=== PATIENT | male | born 1980 | race Caucasian/White ===

== ENCOUNTER → 2018-07-26 14:02 | Outpatient (CLI) | payer OTHER, SELFPAY ==
[2016-11-02 23:52] VITALS: BMI 27.9
--- NOTE | 2018-07-26 14:04 | RAD_ITS ---
STUDY: X-RAY - CERVICAL SPINE REASON FOR EXAM: Male, 37 years old. Lower cervical pain TECHNIQUE: 3 view(s) of the cervical spine were obtained. COMPARISON: 07/17/2014 FINDINGS: Normal anterior atlantoaxial articulation. Normal odontoid process. There is reversal of the normal cervical lordosis. Anterior spondylosis with endplate sclerosis and disc space narrowing at C5-C6 is worse since the prior study. There is also worsening disc disease at C6-C7 as compared to the prior study. Normal remaining disc space heights. No subluxation. The soft tissue structures are unremarkable. RAD/Cerv Spine 2 or 3 Views IMPRESSION: 1. Worsening degenerative disc disease at C5-C6 and C6-7 C7. Electronically Signed: Kulwant Gale MD at 21:35 EST , Service support ,
--- NOTE | 2018-07-26 14:05 | RAD_ITS ---
STUDY: X-RAY - UNILATERAL RIBS ( RIGHT ) REASON FOR EXAM: Male, 37 years old. Patient states no known recent injury. Pain in lower right ribs anteriorly and radiating posteriorly as well. Patient states he was injured as a child in his ribs. TECHNIQUE: 4 view(s) of the ribs. COMPARISON: None. FINDINGS: Normal visualized ribs without a demonstrated fracture. The visualized lung is clear and expanded. RAD/Ribs Unil 2V No CXR IMPRESSION: Normal x-ray examination of the ribs. Electronically Signed: Kulwant Gale MD at 22:29 EST , Service support ,
== END ==
LOC: RAD 14:02
PROVIDERS: Family Provider Internal Medicine; PCP Internal Medicine; Referring Provider Anesthesiology Pain Medicine; Visit Provider Anesthesiology Pain Medicine
DX: M54.2 Cervicalgia (principal); R07.9 Chest pain, unspecified
CPT/HCPCS: 71100; 72040

== ENCOUNTER 2021-09-03 11:41 | Inpatient (IN) | payer MEDICAID, SELFPAY ==
[2021-09-03] VITALS (7 sets, daily range): BP systolic 134–158; BP diastolic 81–100; PULSE 107–114; RESP 16–20; TEMP 35.6–37.8; O2SAT 98–100; BMI 27.2; BMI 26.5
--- NOTE | 2021-09-03 11:56 | EX.ED.DYSGE1 ---
HPI History of Present Illness Chief Complaint: Substance Abuse Detail of Chief Complaint: She presents with withdrawal symptoms and requesting detox from fentanyl an Informant: patient and family Onset/Context/Timing Onset: - (Per HPI) Context: - (Per HPI) Timing: - (Per HPI) Quality: Last alcoholic beverage 7 AM Location: Generalized withdrawal symptoms Current Severity: Moderate Maximum Severity: Moderate Worsened by: Abstinence Relieved by: Nothing Associated Symptoms Associated Symptoms: Tremors, palpitations, agitation abdominal cramping and nausea Narrative Narrative: Patient is a 40-year-old male who was in a detox program 7 years ago. He started drinking 2 years ago because of problems with girlfriend. He drinks between 6 and 12 cans of beer per day. He states 6 months ago he started injecting fentanyl. He started injecting because his girlfriend started to inject. He is injecting 4-5 times a day. He states he is injecting 1/4 g of fentanyl per injection. He reports feeling uneasy, palpitations, tremors, nausea and abdominal cramps. He states he does not feel well. He appears fidgety. He had a history of hepatitis C. He states he underwent treatment. He denies being HIV positive. He states he is having difficulty injecting because he has bumps in his arms. He denies history of rheumatic fever, heart murmur or SBE. Prior similar symptoms: Yes Recent Illness/Hospitalization: No [facility] Medical History Fentanyl dependence Home Medications buprenorphine-naloxone [Suboxone 8 mg-2 mg Sl Film] 14 mg SUBLINGUAL DAILY 01/23/15 [History Last Taken Unknown] Lisinopril 20 mg PO DAILY 05/25/15 [History Last Taken Unknown] omeprazole 20 mg PO DAILY 05/25/15 [History Last Taken Unknown] trazodone 150 mg PO QHS 11/02/16 [History Last Taken Unknown] cephalexin 500 mg PO Q6 #40 capsule 11/03/16 [Rx Last Taken Unknown] Allergy/AdvReac Type Severity Reaction Status Date / Time No Known Allergies Allergy Verified 09/03/21 11:44 Social History (Updated 09/03/21 @ 12:[address] Lamonte Carrillo MD) household members: significant other Smoking Status: Current every day smoker tobacco type: cigarettes alcohol intake: current alcohol intake frequency: 3 or more drinks per day substance use type: opiates and IV drugs ROS ROS ED Constitutional Constitutional ED: Reports chills, fever(s), sweats and weight loss Eyes Eyes: Denies blurry vision, change in vision or diplopia ENT ENT ED: Reports rhinorrhea; Denies ear pain or sore throat Cardiovascular Cardiovascular: Reports palpitations and racing heartbeat; Denies chest pain Respiratory/Chest Respiratory/Chest: Denies cough, dyspnea or dyspnea on exertion Gastrointestinal Gastrointestinal: Reports abdominal pain and nausea; Denies diarrhea, melena or vomiting Genitourinary Genitourinary ED: Denies dysuria, hematuria or urinary frequency Musculoskeletal Musculoskeletal: Reports arthralgias and myalgias; Denies neck pain Integumentary Reports other Details: Patient has multiple palpable lumps volar surface of his right and left forearm suspect due to subcutaneous injection of fentanyl ; Denies abscess, Abrasions or rash Neurologic Neurologic: Denies headache(s), paresthesias or weakness Psychiatric Psychiatric: Reports anxiety and depression Endocrine Endocrinology: Denies polydipsia, polyphagia or polyuria Hematologic/Lymphatic Hematologic/Lymphatic: Denies anemia, easy bleeding, easy bruising or lymphadenopathy EXAM Physical Exam Const Vital Signs: 09/03/21 11:42 09/03/21 11:56 Temperature 96.0 F L Temperature Source Temporal Pulse Rate 114 H 110 H Respiratory Rate 16 Blood Pressure 158/94 H Blood Pressure Mean 115 Pulse Ox 100 Oxygen Delivery Method Room Air Positive well nourished, well developed and unkempt; Negative for obese or contractures General Appearance ED: unkempt, well developed and other Patient is fidgety, restless and appears uncomfortable. ; Negative for contractures, cyanotic, diaphoretic, NAD or pallor Nutritional Appearance: Negative for obese HEENT Reports TM's clear and moist mucous membranes HEENT Narrative: Nares patent. Poor dentition. Negative for trauma or tenderness Tympanic Membrane ED: Yes TM's clear Eyes PERRL and EOMs intact bilaterally General Eye ED: Negative for pale conjunctiva or scleral icterus Neck no lymphadenopathy, supple and no JVD Neck Narrative: Trachea is midline. Resp normal respiratory effort and clear to auscultation bilaterally Cardio regular rhythm, S1 normal heart sound, S2 normal heart sound and no murmurs Rate: tachycardic GI non-distended and no masses; Negative for hepatosplenomegaly Palpation: soft and tender other (Minimal superficial tenderness.); Negative for guarding or rebound tenderness present Back/Spine no CVA tenderness Cervical Spine: Negative for cervical spine tenderness Thoracic Spine / Upper Back: Negative for thoracic spinal tenderness or paraspinal muscle tenderness Extremity Negative for normal to inspection Extremity Narrative: Palpable subcutaneous masses suspect due to failed IV cannulation and injection of fentanyl subcutaneously there is no erythema, warmth or induration. There is no lymphangitis. There is no epitrochlear lymphadenopathy. General Extremety ED: Negative for edema or tenderness General Extremity: Negative for edema Neuro oriented x3, CN's II-XII intact bilaterally and no sensory deficits noted Neuro Narrative: Patient is hyperreflexic with 3 beats of clonus at the right and left ankle. There is no Babinski sign or dysmetria. Sensorium / Orientation: alert Motor Exam: strength 5/5 throughout Psych Appearance: unkempt Attitude: agitated Mood & Affect: anxious Skin No no rashes or lesions noted and no wounds General Skin Exam: Negative for jaundice or pallor MDM MDM MDM Narrative Medical decision making narrative: Patient has history and physical exam consistent with withdrawal. Suspect he withdraws from the opiates. There may be concomitant alcohol withdrawal. Appropriate labs were ordered. Treatment was initiated with Ativan and phenobarb. Patient understands he is not permitted to smoke while here. Lab Data Lab results narrative: Labs to be followed by hospitalist admitting patient. Hospitalist is presently seeing the patient. Labs: Laboratory Results - last 24 hr 09/03/21 12:10 Ur Drug Screen Comment Rhythm Strip Rhythm Strip: Sinus Tach Rate: 108 Ectopy: None Discharge Plan Triage Chief Complaint: Substance Abuse ED Provider: Lamonte Carrillo Dx/Rx/DC Orders Clinical Impression: Alcohol withdrawal, Withdrawal from opioids Prescriptions: No Action buprenorphine-naloxone [Suboxone] 1 EACH Film 14 mg sublingual DAILY RF: 0 omeprazole 20 MG Capsule.Dr 20 mg PO DAILY RF: 0 Lisinopril 20 mg PO DAILY RF: 0 trazodone 150 MG tablet 150 mg PO QHS RF: 0 cephalexin 500 MG capsule 500 mg PO Q6 Qty: 40 RF: 0 Primary Care Provider: Lorena Edgar Referrals: Lorena Edgar MD [Primary Care Provider] - Disposition Disposition: Acute Care Hospital [facility]
[2021-09-03] MEDS: Dicyclomine 10 MG Capsule 20 MG PO ×2 (12:04→17:49)
[2021-09-03] MEDS: LORazepam 2 MG/ML Syringe 1 MG IM (12:05)
[2021-09-03] MEDS: Ondansetron ODT 4 MG Tablet PO (12:05)
[2021-09-03] MEDS: Phenobarbital 32.4 MG Tablet 97.2 MG PO (12:05)
--- NOTE | 2021-09-03 12:24 | PCM.HP.STD ---
HPI - General HPI Narrative EMERY BRANTLEY, is a 40 M who presents seeking treatment for fentanyl and alcohol withdrawal. Last fentanyl use was last night and last drink was this AM. Since he last use, he has been diaphoretic, abdominal cramps, tremulousness. He was sober 7 years ago, but began using fentanyl 2 years ago. He has developed lesions in his arm from injections. He plans to follow up with [facility] as outpt with his (she is currently incarcerated). [facility] Medical History Fentanyl dependence Hepatitis C Home Medications buprenorphine-naloxone [Suboxone 8 mg-2 mg Sl Film] 14 mg SUBLINGUAL DAILY 01/23/15 [History Last Taken Unknown] Lisinopril 20 mg PO DAILY 05/25/15 [History Last Taken Unknown] omeprazole 20 mg PO DAILY 05/25/15 [History Last Taken Unknown] trazodone 150 mg PO QHS 11/02/16 [History Last Taken Unknown] cephalexin 500 mg PO Q6 #40 capsule 11/03/16 [Rx Last Taken Unknown] Allergy/AdvReac Type Severity Reaction Status Date / Time No Known Allergies Allergy Verified 09/03/21 11:44 no significant family history Social History household members: significant other Smoking Status: Current every day smoker tobacco type: cigarettes alcohol intake: current alcohol intake frequency: 3 or more drinks per day substance use type: opiates and IV drugs ROS ROS Narrative All review of systems were negative except as mentioned above in the history of present illness and the other review of systems. Vital Signs Vital Signs Vital Signs: 09/03/21 11:42 09/03/21 11:56 Temperature 35.6 C L Temperature Source Temporal Pulse Rate 114 H 110 H Respiratory Rate 16 Blood Pressure 158/94 H Blood Pressure Mean 115 Pulse Ox 100 Oxygen Delivery Method Room Air Weight Weight: 86.183 kg Body Mass Index (BMI) 27.2 Physical Exam Const alert Constitutional Narrative: agitated. afebrile. HEENT normocephalic, head/scalp atraumatic, hearing grossly normal bilaterally and moist oral mucous membranes Resp normal respiratory effort, no retractions, no use of accessory muscles and clear to auscultation bilaterally Cardio regular rate, regular rhythm and S1 normal heart sound GI normal to inspection, nondistended, normoactive bowel sounds, soft to palpation, non-tender and non-distended Extremity normal to inspection Skin Skin Narrative: Raised indurated lesions on bilateral antecubital regions. Results Lab / Micro Data Labs: Laboratory Results - last 24 hr 09/03/21 12:10: Ur Drug Screen Comment Rhythm Strip Rhythm Strip: Sinus Tach Rate: 108 Ectopy: None Assessment & Plan Assessment/Plan (1) Alcohol withdrawal: QUALIFIERS: Complication of substance-induced condition: with perceptual disturbance Qualified Code(s): F10.232 - Alcohol dependence with withdrawal with perceptual disturbance (2) Withdrawal from opioids: PLAN: 1. Acute opiate withdrawal Last use was on the I feel this is primarily his main withdrawal symptoms rather than alcohol but will treat him for both Buprenorphine taper as well as additional medications to help with somatic complaints Patient to follow-up with [facility] upon discharge 2. Acute alcohol withdrawal Thiamine and folate Phenobarbital taper 3. Antecubital arm lesions No evidence of infection at this time Likely due to the cutting agents with his fentanyl 4. VTE prophylaxis not indicated at this time Charges/Coding Visit Charges Inpatient E&M: 49312 Init Hosp L2
[2021-09-03 12:31] LABS: Absolute Neutrophil Count 9.2 X10^3/uL (2.0-7.7); Basophil# 0.08 X10^3/uL; Basophil% 0.6 % (0-1); Eosinophil# 0.15 X10^3/uL; Eosinophils% 1.2 % (0-5); Hematocrit 41.2 % (40-54); Hemoglobin 13.5 g/dL (13.0-16.5); Lymphocyte % 19.3 % (19-41); Mean Corp Hgb Conc 32.8 g/dL (32-36); Mean Corpuscular Hgb 28.5 pg (27.0-32.0); Mean Corpuscular Volume 86.9 fL (80-94); Mean Platelet Vol. 8.4 fl (6.2-12.0); Monocyte# 0.54 X10^3/uL; Monocyte% 4.3 % (0-10); NRBC Flagged by Analyzer 0 % (0-5); Neutrophil # 9.16 X10^3/uL (2.7-7.7); Neutrophil % 73.9 % (47-70); Platelet Count 427 K/mm3 (150-450); RBC Distribution Width CV 13.5 % (11.6-14.6); RBC Distribution Width SD 42.8 fl (35.1-43.9); Red Blood Count 4.74 M/mm3 (4.6-6.2); White Blood Count 12.4 K/mm3 (4.4-11.0)
[2021-09-03] MEDS: Midazolam 2 MG/2 ML Syringe IM (12:32)
[2021-09-03 12:42] LABS: Amphetamine Urine VISTA NEGATIVE (<1000 ng/mL); Barbiturate Urine VISTA NEGATIVE (< 200 ng/mL); Benzodiazepine Urine VISTA NEGATIVE (< 200 ng/mL); Cocaine Urine VISTA NEGATIVE (< 300 ng/mL); Ecstacy Urine VISTA NEGATIVE (< 500 ng/mL); Methadone Urine VISTA NEGATIVE (< 300 ng/mL); PCP Urine VISTA NEGATIVE (< 25 ng/mL); THC Urine VISTA POSITIVE (< 50 ng/mL); Vista UDS pH Range 6
[2021-09-03 12:45] LABS: ALB/GLOB Ratio 0.7 RATIO (0.9-2.4); AST(SGOT) 27 U/L (15-37); Alanine Aminotransfer ALT/SGPT 45 U/L (16-61); Albumin, Serum 3.4 g/dL (3.2-5.0); Alkaline Phosphatase 91 U/L (45-117); Anion Gap 6 (5-15); BUN 10 mg/dL (7-18); BUN/Creat Ratio 15.6 RATIO (10-20); Calcium,Total 9.4 mg/dL (8.5-10.1); Chloride 108 mmol/L (98-107); Creatinine, Serum 0.64 mg/dL (0.70-1.30); EST Glomerular Filtration Rate 145 mL/min (>60); Est Glom Filt Rate - Afr Amer 176 mL/min (>60); Estimated Creatinine Clearance 155.25 ml/min; Globulin 4.8 g/dL (2.2-4.2); Glucose 108 mg/dL (74-106); Potassium 3.7 mmol/L (3.5-5.1); Protein, Total 8.2 g/dL (6.4-8.2); Sodium Level 139 mmol/L (136-145)
--- NOTE | 2021-09-03 12:55 | NURSING ---
Sandrita abreu withdrawal alcohol and fentanyl
[2021-09-03] MEDS: Buprenorphine HCl 2 MG TAB.SUBL SL ×2 (13:57→22:10)
--- NOTE | 2021-09-03 15:16 | ADDICTION ---
This com writer met with PT to conduct ASAM, MSE, AUDIT assessments and to plan for d/c. PT A+Ox4 and participated actively. All assessments completed, faxed to [facility] [place] and placed in PT's chart. PT plans to f/u with [facility] for Recovery services. PT did not indicate a need for transportation post d/c from [facility].
[2021-09-03] MEDS: Phenobarbital 32.4 MG Tablet 64.8 MG PO ×2 (15:38→20:37)
[2021-09-03] MEDS: cloNIDine HCl 0.1 MG Tablet PO (15:38)
[2021-09-03] MEDS: Methocarbamol 750 MG Tablet 1500 MG PO (17:49)
[2021-09-03] MEDS: Gabapentin 300 MG Capsule PO (17:49)
[2021-09-03] MEDS: traZODone 100 MG Tablet PO (20:41)
[2021-09-03] MEDS: hydrOXYzine PAM 25 MG Capsule 50 MG PO (20:41)
[2021-09-04] MEDS: Phenobarbital 32.4 MG Tablet 64.8 MG PO ×6 (00:50→19:59)
--- NOTE | 2021-09-04 03:21 | PCS.PANDOC ---
PANDEMIC DOCUMENTATION INITIATED: Date: 03/28/2021 Time: 190
[2021-09-04] MEDS: Methocarbamol 750 MG Tablet 1500 MG PO ×2 (04:35→22:48)
[2021-09-04] MEDS: Gabapentin 300 MG Capsule PO (04:35)
[2021-09-04 04:40] VITALS: BP 146/99; PULSE 82; RESP 16; TEMP 36.1; O2SAT 98
[2021-09-04] MEDS: Buprenorphine HCl 2 MG TAB.SUBL SL ×3 (06:07→22:48)
[2021-09-04] MEDS: Thiamine Hydrochloride 100 MG Tablet PO (08:12)
[2021-09-04] MEDS: Folic Acid 1 MG Tablet PO (08:13)
[2021-09-04] MEDS: Lisinopril 20 MG Tablet PO (08:13)
[2021-09-04] MEDS: Pantoprazole Sodium 20 MG Tablet PO (08:13)
[2021-09-04 08:19] VITALS: BP 147/97; PULSE 92; RESP 16; TEMP 37.9; O2SAT 99
[2021-09-04 11:29] VITALS: BP 137/87; PULSE 100; RESP 16; TEMP 36.5; O2SAT 99
[2021-09-04 11:30] VITALS: BP 137/87; PULSE 100; RESP 16; TEMP 36.5; O2SAT 99
--- NOTE | 2021-09-04 11:32 | PCM.PN.HOSP ---
Subjective Subjective Had some chills. Objective Data Objective Data Vital Signs: Vital Signs Temp Pulse Resp BP Pulse Ox 36.5 C L 100 16 137/87 H 99 09/04/21 11:30 09/04/21 11:30 09/04/21 11:30 09/04/21 11:30 09/04/21 11:30 Oxygen Delivery Method Room Air Weight: 84.005 kg Body Mass Index (BMI) 26.5 Intake & Output: Intake and Output for Last 24 Hours 09/02/21 09/03/21 09/04/21 23:59 23:59 23:59 Intake Total 800 / 800 450 / 450 Balance 800 / 800 450 / 450 Lab / Micro Data Result Diagrams: 09/03/21 12:25 09/03/21 12:25 Labs: Laboratory Results - last 24 hr 09/03/21 12:10: Urine Opiates Screen NEGATIVE, Urine Methadone Screen NEGATIVE, Ur Barbiturates Screen NEGATIVE, Ur Phencyclidine Scrn NEGATIVE, Ur Amphetamines Screen NEGATIVE, U Methamphetamin-MDMA NEGATIVE, U Benzodiazepines Scrn NEGATIVE, Urine Cocaine Screen NEGATIVE, U Cannabinoids Screen POSITIVE H, Ur Drug Screen Comment 09/03/21 12:25: WBC 12.4 H, RBC 4.74, Hgb 13.5, Hct 41.2, MCV 86.9, MCH 28.5, MCHC 32.8, RDW Std Deviation 42.8, RDW Coeff of Parker 13.5, Plt Count 427, MPV 8.4, Immature Gran % (Auto) 0.700, Neut % (Auto) 73.9 H, Lymph % (Auto) 19.3, [place] % (Auto) 4.3, Eos % (Auto) 1.2, Baso % (Auto) 0.6, Absolute Neuts (auto) 9.2 H, Absolute Lymphs (auto) 2.40, Nucleated RBC % 0 09/03/21 12:25: Sodium 139, Potassium 3.7, Chloride 108 H, Carbon Dioxide 25.0, Anion Gap 6, BUN 10, Creatinine 0.64 L, Estim Creat Clear Calc 155.25, Est GFR (MDRD) Af Amer 176, Est GFR (MDRD) Non-Af 145, BUN/Creatinine Ratio 15.6, Glucose 108 H, Calcium 9.4, Total Bilirubin 0.10 L, AST 27, ALT 45, Alkaline Phosphatase 91, Total Protein 8.2, Albumin 3.4, Globulin 4.8 H, Albumin/Globulin Ratio 0.7 L 09/03/21 12:25: Ethyl Alcohol 12.0 Micro: Microbiology 09/04/21 08:25 Nasal Secretion SARS-CoV-2 Antigen (Rapid) - Final Rhythm Strip Rhythm Strip: Sinus Tach Rate: 108 Ectopy: None Physical Exam Const alert and no apparent distress HEENT head/scalp atraumatic Head and Scalp: normocephalic Extremity Extremity Narrative: indurated lesions in antecubital areas without surrounding erythema. Neuro Sensorium / Orientation: awake and alert Psych affect normal Assessment & Plan Assessment/Plan (1) Alcohol withdrawal: QUALIFIERS: Complication of substance-induced condition: with perceptual disturbance Qualified Code(s): F10.232 - Alcohol dependence with withdrawal with perceptual disturbance (2) Withdrawal from opioids: PLAN: 1. Acute opiate withdrawal Last use was on the I feel this is primarily his main withdrawal symptoms rather than alcohol but will treat him for both Buprenorphine taper as well as additional medications to help with somatic complaints Patient to follow-up with [facility] upon discharge 2. Acute alcohol withdrawal Thiamine and folate Phenobarbital taper 3. Antecubital arm lesions No evidence of infection at this time Likely due to the cutting agents with his fentanyl monitor for infection, none present. 4. subjective chills COVID 19 negative. he has been vaccinated no evidence of cellulitis on arms may be from withdrawal. 5. VTE prophylaxis not indicated at this time Charges/Coding Visit Charges Inpatient E&M: 74683 Subs Hosp L2
[2021-09-04] MEDS: Dicyclomine 10 MG Capsule 20 MG PO (14:25)
[2021-09-04 14:31] VITALS: BP 127/89; PULSE 100; RESP 16; TEMP 36.4; O2SAT 100
[2021-09-04 21:45] VITALS: BP 137/84; PULSE 97; RESP 8; TEMP 37.1; O2SAT 100
[2021-09-04] MEDS: traZODone 100 MG Tablet PO (22:48)
[2021-09-05] MEDS: Phenobarbital 32.4 MG Tablet 64.8 MG PO ×6 (00:39→20:03)
[2021-09-05 04:45] VITALS: BP 105/63; PULSE 102; RESP 16; TEMP 37; O2SAT 100
[2021-09-05] MEDS: Buprenorphine HCl 2 MG TAB.SUBL SL ×2 (05:30→13:41)
[2021-09-05] MEDS: Folic Acid 1 MG Tablet PO (07:48)
[2021-09-05] MEDS: Pantoprazole Sodium 20 MG Tablet PO (07:48)
[2021-09-05] MEDS: Lisinopril 20 MG Tablet PO (07:48)
[2021-09-05] MEDS: Thiamine Hydrochloride 100 MG Tablet PO (07:48)
[2021-09-05 07:52] VITALS: BP 104/66; PULSE 101; RESP 16; TEMP 36.4; O2SAT 97
--- NOTE | 2021-09-05 08:19 | PCM.PN.HOSP ---
Subjective Subjective Patient is a 40-year-old gentleman with history of polysubstance abuse including alcohol and opiate admitted with withdrawal from both substances Objective Data Objective Data Vital Signs: Vital Signs Temp Pulse Resp BP Pulse Ox 97.5 F L 101 H 16 104/66 97 09/05/21 07:52 09/05/21 07:52 09/05/21 07:52 09/05/21 07:52 09/05/21 07:52 Oxygen Delivery Method Room Air Weight: 84.005 kg Body Mass Index (BMI) 26.5 Intake & Output: Intake and Output for Last 24 Hours 09/03/21 09/04/21 09/05/21 23:59 23:59 23:59 Intake Total 800 / 800 1050 / 1050 Balance 800 / 800 1050 / 1050 Lab / Micro Data Result Diagrams: 09/03/21 12:25 09/03/21 12:25 Micro: Microbiology 09/04/21 08:25 Nasal Secretion SARS-CoV-2 Antigen (Rapid) - Final Rhythm Strip Rhythm Strip: Sinus Tach Rate: 108 Ectopy: None Physical Exam Narrative GENERAL: cooperative HEENT: Atraumatic; EYES; Anicteric, Normal Conjunctiva NECK; supple, normal thyroid, RESPIRATORY: Diminished to auscultation CARDIOVASCULAR: Regular S1 S2, GI: soft, normoactive bowel sounds, : No Renal angle tenderness; EXTREMITIES: No edema, no clubbing, MUSCULOSKELETAL: no muscle waisting NEURO: Awake; no lateralizing signs. SKIN: No Rash PSYCH; Flat affect Assessment & Plan Assessment/Plan (1) Alcohol withdrawal: QUALIFIERS: Complication of substance-induced condition: with perceptual disturbance Qualified Code(s): F10.232 - Alcohol dependence with withdrawal with perceptual disturbance (2) Withdrawal from opioids: PLAN: Patient is a 40-year-old gentleman with history of polysubstance abuse including alcohol and opiate admitted with withdrawal from both substances 1. Acute opioid withdrawal ?Patient has been admitted to regular nursing floor currently being managed with buprenorphine taper 2. Acute alcohol withdrawal ?Patient is on phenobarb taper 3. Essential hypertension ?Patient is on lisinopril rate controlled 4. GERD ?Patient is on omeprazole at home substituted with Protonix 5. DVT prophylaxis ?Low risk did encourage early ambulation Charges/Coding Visit Charges Inpatient E&M: 79659 Subs Hosp L2
[2021-09-05 11:23] VITALS: BP 108/60; PULSE 111; RESP 16; TEMP 36.6; O2SAT 99
--- NOTE | 2021-09-05 12:16 | NURSING ---
spoke to Yovani from [facility] - [phone] - please call when we have discharge and mother will transport pt to facility. discharge summary and medication list to accompany pt.
[2021-09-05] MEDS: cloNIDine HCl 0.1 MG Tablet PO (12:18)
[2021-09-05] MEDS: Gabapentin 300 MG Capsule PO (12:18)
[2021-09-05] MEDS: Methocarbamol 750 MG Tablet 1500 MG PO (12:18)
[2021-09-05] MEDS: hydrOXYzine PAM 25 MG Capsule 50 MG PO (15:32)
[2021-09-05 15:35] VITALS: BP 88/52; PULSE 55; RESP 16; TEMP 37.4; O2SAT 100
--- NOTE | 2021-09-05 15:39 | CM.ED ---
SW Note SW received call from woman identifying herself as patient's mother, Hailey Babin. She said that patient has agreed to go to [facility] on [address] in [place] with Pastor [facility]. 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 Hailey's phone number is [phone] Pat AMIN
[2021-09-05 20:00] VITALS: BP 96/57; PULSE 80; RESP 16; TEMP 36.7; O2SAT 97
[2021-09-06] MEDS: Phenobarbital 32.4 MG Tablet 64.8 MG PO ×3 (00:07→11:06)
[2021-09-06 02:20] VITALS: BP 115/73; PULSE 82; RESP 16; TEMP 36.6; O2SAT 96
[2021-09-06] MEDS: Buprenorphine HCl 2 MG TAB.SUBL SL (02:40)
--- NOTE | 2021-09-06 07:42 | PCM.DC.SUM ---
Providers Date of Admission: 09/03/21 Primary Care Physician: Dr. Lorena Edgar MD Reason For Visit: OPIATE AND ALCOHOL WITHDRAWAL Diagnosis Discharge Diagnosis (1) Alcohol withdrawal: Status: Acute Code(s): F10.239 - Alcohol dependence with withdrawal, unspecified Qualifiers: Complication of substance-induced condition: with perceptual disturbance Qualified Code(s): F10.232 - Alcohol dependence with withdrawal with perceptual disturbance (2) Withdrawal from opioids: Status: Acute Code(s): F11.23 - Opioid dependence with withdrawal Medications at Discharge Home Medications buprenorphine-naloxone [Suboxone] 14 mg SUBLINGUAL DAILY 01/23/15 Lisinopril 20 mg PO DAILY 05/25/15 omeprazole 20 mg PO DAILY 05/25/15 cephalexin 500 mg PO Q6 #40 capsule 11/03/16 Hospital Course Summary of Care Provided Minutes Spent on Discharge: 32 Hospital Course: Patient is a 40-year-old gentleman with history of polysubstance abuse including alcohol and opiate admitted with withdrawal from both substances 1. Acute opioid withdrawal ?Patient has been admitted to regular nursing floor currently being managed with buprenorphine taper 2. Acute alcohol withdrawal ?Patient is on phenobarb taper 3. Essential hypertension ?Patient is on lisinopril rate controlled 4. GERD ?Patient is on omeprazole at home substituted with Protonix 5. DVT prophylaxis ?Low risk did encourage early ambulation Physical Exam Narrative GENERAL: cooperative HEENT: Atraumatic; EYES; Anicteric, Normal Conjunctiva NECK; supple, normal thyroid, RESPIRATORY: Diminished to auscultation CARDIOVASCULAR: Regular S1 S2, GI: soft, normoactive bowel sounds, : No Renal angle tenderness; EXTREMITIES: No edema, no clubbing, MUSCULOSKELETAL: no muscle waisting NEURO: Awake; no lateralizing signs. SKIN: No Rash PSYCH; Flat affect Weight / BMI Weight Weight: 84.005 kg Body Mass Index (BMI) 26.5 ABG / Lab / Microbiology Data Result Diagrams: 09/03/21 12:25 09/03/21 12:25 Microbiology: Microbiology 09/04/21 08:25 Nasal Secretion SARS-CoV-2 Antigen (Rapid) - Final D/C Instructions Discharge Diet: No restrictions Discharge Activity: Return to Normal Activity Call your doctor if you observe: Fever of 101 or Higher, Shortness of breath, Fainting spells and Chest pain Meaningful Use Info Meaningful Use Diagnoses (Choose all that apply): None applicable Discharge Plan Admission Admit Date/Time: 09/03/21 12:22 Attending Provider: Mart Ca Primary Care Provider: Lorena Edgar Discharge Orders/Prescriptions Prescriptions: Continued buprenorphine-naloxone [Suboxone] 1 EACH film 14 mg sublingual DAILY RF: 0 omeprazole 20 MG capsule,delayed release(DR/EC) 20 mg PO DAILY RF: 0 Lisinopril 20 mg PO DAILY RF: 0 cephalexin 500 MG capsule 500 mg PO Q6 Qty: 40 RF: 0 Discontinued trazodone 150 MG tablet 150 mg PO QHS RF: 0 Referrals / Follow Up: Lorena Edgar MD [Primary Care Provider] - Within 2 Weeks Disposition Disposition (needs filled in before D/C Order can be placed): Home, Self Care Charges/Coding Visit Charges Inpatient E&M: 45515 Disch Hosp
[2021-09-06] MEDS: Folic Acid 1 MG Tablet PO (09:17)
[2021-09-06] MEDS: Thiamine Hydrochloride 100 MG Tablet PO (09:17)
[2021-09-06] MEDS: Pantoprazole Sodium 20 MG Tablet PO (09:17)
[2021-09-06 09:18] VITALS: BP 120/74; PULSE 100; RESP 18; TEMP 36.4; O2SAT 98
[2021-09-06] MEDS: Lisinopril 20 MG Tablet PO (09:18)
[2021-09-06] MEDS: hydrOXYzine PAM 25 MG Capsule 50 MG PO (11:06)
== END 2021-09-06 12:11 | disposition home or self-care (01) | DRG 773 ==
LOC: ED 12:21 → MS3 12:32
PROVIDERS: Emergency Provider Emergency Medicine; PCP Internal Medicine; Visit Provider Internal Medicine
DX: F10.232 Alcohol dependence with withdrawal with perceptual disturbance (principal); F11.23 Opioid dependence with withdrawal; F17.210 Nicotine dependence, cigarettes, uncomplicated; I10 Essential (primary) hypertension; K21.9 Gastro-esophageal reflux disease without esophagitis; Y90.9 Presence of alcohol in blood, level not specified; Z86.19 Personal history of other infectious and parasitic diseases
CPT/HCPCS: 80053; 80307; 82077; 85025; 87426; 99282